=== PATIENT | female | born 1975 | race Caucasian/White ===

== ENCOUNTER 2018-04-24 14:43 | Emergency (ER) | payer BC ==
--- NOTE | 2018-04-24 14:57 | EDM.PDOC ---
ED HPI GENERAL MEDICAL PROBLEM - General Chief Complaint: Upper Extremity Injury/Pain Stated Complaint: SHOULDER INJURY Time Seen by Provider: 04/24/18 14:43 Source of Information: Reports: Patient History Limitations: Reports: No Limitations - History of Present Illness Onset: Today, Sudden Location: Reports: Back, Upper Extremity, Right Quality: Reports: Throbbing Severity: Moderate Improves with: Reports: None Worsens with: Reports: Movement Context: Reports: Trauma Associated Symptoms: Reports: No Other Symptoms Right Shoulder Pain Score (Numeric/FACES): 8 - Related Data Allergies Allergy/AdvReac Type Severity Reaction Status Date / Time oxycodone Allergy Airway Verified 04/24/18 14:54 Tightness Penicillins Allergy Cannot Verified 04/24/18 14:54 Remember Home Meds: Home Meds Levothyroxine Sodium [Synthroid] 250 mcg PO DAILY 04/24/18 [History] Review of Systems - Review of Systems Review Of Systems: See Below Constitutional: Reports: No Symptoms Mouth/Throat: Reports: No Symptoms Respiratory: Reports: No Symptoms Cardiovascular: Reports: No Symptoms GI/Abdominal: Reports: No Symptoms Musculoskeletal: Reports: Other (RIGHT shoulder pain) Skin: Reports: No Symptoms Neurological: Reports: No Symptoms ED EXAM, GENERAL - Physical Exam Exam: See Below Exam Limited By: No Limitations General Appearance: Alert, WD/WN, No Apparent Distress Eye Exam: Left Eye: PERRL Ears: Normal TMs Nose: Normal Inspection Throat/Mouth: Normal Teeth, Normal Oropharynx, Normal Voice Head: Atraumatic, Normocephalic Neck: Tender Lateral, Other (R side muscle spasm. CSPINE without tenderness or limitation or ROM) Respiratory/Chest: No Respiratory Distress, No Accessory Muscle Use Cardiovascular: Normal Peripheral Pulses Peripheral Pulses: 2+: Radial (L), Radial (R) Back Exam: Muscle Spasm. No: Vertebral Tenderness Extremities: Other (RIGHT shoulder TTP throughout, limited ROM. The RIGHT forearm and hand are contracted and weak s/p crush injury as youth. Reports CMS is at baseline. MSK exam otherwise without acute findings.) Neurological: Alert, Oriented, Normal Cognition Skin Exam: Warm, Dry, Intact, Normal Color Course - Vital Signs Last Recorded V/S: Last Vital Signs Temp 37.2 C 04/24/18 14:55 Pulse 93 04/24/18 14:55 Resp 16 04/24/18 14:55 BP 141/93 H 04/24/18 14:55 Pulse Ox 96 04/24/18 14:55 - Orders/Labs/Meds Orders: Active Orders 24 hr Category Date Time Status Shoulder Comp Rt [CR] Stat Exams 04/24/18 14:52 Taken Meds: Medications Discontinued Medications Generic Name Dose Route Start Last Admin Trade Name Max PRN Reason Stop Dose Admin Ketorolac Tromethamine 60 mg 04/24/18 15:25 04/24/18 15:31 Toradol IM 04/24/18 15:26 60 mg ONETIME ONE Administration Departure - Departure Time of Disposition: 16:09 Disposition: Home, Self-Care 01 Condition: Good Clinical Impression: Sprain of shoulder - Discharge Information *PRESCRIPTION DRUG MONITORING PROGRAM REVIEWED*: Not Applicable *COPY OF PRESCRIPTION DRUG MONITORING REPORT IN PATIENT CARLOS: Not Applicable Instructions: Shoulder Sprain, How to Use a Sling, [id number], Cryotherapy, [id number] Forms: ED Department Discharge - My Orders Last 24 Hours: My Active Orders 04/24/18 14:52 Shoulder Comp Rt [CR] Stat - Assessment/Plan Last 24 Hours: My Active Orders 04/24/18 14:52 Shoulder Comp Rt [CR] Stat Assessment:: Shoulder sprain XR of the shoulder shows no fracture or subluxation. Offered sling however patient declines and reports she has a sling at home that she will use. Given IM toradal here in ED with minimal reduction in pain. Advised patient to rest, hydrate, use sling daily, avoid heavy labor, OTC pain control PRN pain, fu with PCP in 3-5 days, go to closest ER if change or worse. Patient and spouse at bedside report understanding and agreement with plan. DC home stable in care of spouse.
[2018-04-24] MEDS ORDERED: Ketorolac 60 MG/2 ML SDV IM ONE (15:25)
== END 2018-04-24 16:20 | disposition home or self-care (01) ==
LOC: CC.ED 14:43
DX: S43.401A Unspecified sprain of right shoulder joint, initial encounter (principal); Z88.0 Allergy status to penicillin; Z88.5 Allergy status to narcotic agent; X58.XXXA Exposure to other specified factors, initial encounter
CPT/HCPCS: 73030-RT; 96372; 99283; J1885